=== PATIENT | female | born 1950 | race Caucasian/White ===

== ENCOUNTER 2019-05-25 15:46 | Emergency (ER) | payer BC ==
[2019-05-25] MEDS ORDERED: ASPIRIN 81 MG TAB.CHEW PO ONE (16:00)
--- NOTE | 2019-05-25 16:01 | EKG ---
[address] [address] Test Date: 2019-05-25 Test Time: 15:59:10 Pat Name: JULES BYRNE Department: Room: Gender: F [employer]ice: : 1950 Requested By: KAREN BYRNE Order Number: [id number] Reading MD: Measurements Intervals [place] Rate: 85 P: 64 SD: 196 QRS: 42 QRSD: 88 T: 60 QT: 366 QTc: 441 Interpretive Statements SINUS RHYTHM VENTRICULAR PREMATURE COMPLEX(ES), BIGEMINY ABNORMAL ECG RI6.01 No previous ECG available for comparison
[2019-05-25 16:21] VITALS: BP 174/89
[2019-05-25 16:32] LABS: BASO % 1 % (0-3); EOS # 0.1 x10^3/uL (0.0-0.7); EOS % 2 % (0-3); HEMOGLOBIN 14.9 g/dL (12.0-15.5); LYMPH % 31 % (24-48); MEAN CORPUSCULAR HEMOGLOBIN 30 pg (25-35); MEAN CORPUSCULAR HGB CONC 32 g/dL (31-37); MEAN CORPUSCULAR VOLUME 92 fL (79-100); MONO # 0.6 x10^3/uL (0.0-1.1); MONO % 9 % (0-9); NEUT # 3.8 x10^3uL (1.8-7.7); NEUT % 58 % (31-73); PLATELET COUNT 178 x10^3/uL (140-400); RED BLOOD COUNT 4.99 x10^6/uL (3.50-5.40); RED CELL DISTRIBUTION WIDTH 14.2 % (11.5-14.5); WHITE BLOOD COUNT 6.5 x10^3/uL (4.0-11.0)
--- NOTE | 2019-05-25 16:35 | RAD ---
Study: PORTABLE CHEST 1V Indication: Chest pain. Comparison: None. Findings: The cardiomediastinal silhouette is within normal limits for size. Vascular calcifications at the aortic arch. No overt central vascular congestion. No lobar infiltrate, large effusion or pneumothorax. The lungs appear hyperexpanded and a component of underlying emphysema may be present. No acute osseous abnormality is seen. No free air under the diaphragm. Impression: 1. No acute radiographic abnormality of the chest. 2. The lungs appear hyperexpanded which could be secondary to underlying emphysema if there is a smoking history. Electronically signed by: JACKSON HOGUE MD (05/25/2019 4:32 PM) [facility]
--- NOTE | 2019-05-25 16:43 | PHYS DOC ---
Past History Past Medical History: Arthritis, High Cholesterol Past Surgical History: No Surgical History Alcohol Use: None Drug Use: None Adult General Chief Complaint Chief Complaint: CHEST PAIN [facility] HPI 68-year-old female presents with chest pain and palpitations. The patient went to her primary physician recently was diagnosed with PVCs. She had some blood work done and a referral for cardiology. The patient has had the feeling of palpitations for several years, but they usually are infrequent and less noticeable. They've been more noticeable lately. She was noticing them much more today at work and decided she should be evaluated. She also had some central chest tightness. She denies shortness of breath or diaphoresis. She has not had fever or chills. No other significant cardiac history. Review of Systems Review of Systems Constitutional: Denies fever or chills [] Eyes: Denies change in visual acuity, redness, or eye pain [] HENT: Denies nasal congestion or sore throat [] Respiratory: Denies cough or shortness of breath [] Cardiovascular: No additional information not addressed in HPI [] GI: Denies abdominal pain, nausea, vomiting, bloody stools or diarrhea [] : Denies dysuria or hematuria [] Musculoskeletal: Denies back pain or joint pain [] Integument: Denies rash or skin lesions [] Neurologic: Denies headache, focal weakness or sensory changes [] Endocrine: Denies polyuria or polydipsia [] All other systems were reviewed and found to be within normal limits, except as documented in this note. Current Medications Current Medications Current Medications Medications (Trade) Dose Ordered Sig/[facility] Start Time Stop Time Status Last Admin Dose Admin Aspirin (Children'S Aspirin) 324 mg 1X ONCE 05/25/19 16:00 05/25/19 16:16 DC Allergies Allergies Allergies Coded Allergies Type Severity Reaction Last Updated Verified piperacillin Allergy Unknown 05/25/19 Yes tazobactam Allergy Unknown 05/25/19 Yes Physical Exam Physical Exam Constitutional: Well developed, well nourished, no acute distress, non-toxic appearance. [] HENT: Normocephalic, atraumatic, bilateral external ears normal, oropharynx moist, no oral exudates, nose normal. [] Eyes: PERRLA, EOMI, conjunctiva normal, no discharge. [] Neck: Normal range of motion, no tenderness, supple, no stridor. [] Cardiovascular:Heart rate regular rhythm, no murmur [] Lungs & Thorax: Bilateral breath sounds clear to auscultation [] Abdomen: Bowel sounds normal, soft, no tenderness, no masses, no pulsatile masses. [] Skin: Warm, dry, no erythema, no rash. [] Back: No tenderness, no CVA tenderness. [] Extremities: No tenderness, no cyanosis, no clubbing, ROM intact, no edema. [] Neurologic: Alert and oriented X 3, normal motor function, normal sensory function, no focal deficits noted. [] Psychologic: Affect normal, judgement normal, mood normal. [] Current Patient Data Vital Signs Vital Signs Date Time Temp Pulse Resp B/P (MAP) Pulse Ox O2 Delivery O2 Flow Rate FiO2 05/25/19 16:21 53 18 99 Room Air Lab Results Laboratory Tests Test 05/25/19 16:16 White Blood Count 6.5 x10^3/uL (4.0-11.0) Red Blood Count 4.99 x10^6/uL (3.50-5.40) Hemoglobin 14.9 g/dL (12.0-15.5) Hematocrit 46.0 % (36.0-47.0) Mean Corpuscular Volume 92 fL (79-100) Mean Corpuscular Hemoglobin 30 pg (25-35) Mean Corpuscular Hemoglobin Concent 32 g/dL (31-37) Red Cell Distribution Width 14.2 % (11.5-14.5) Platelet Count 178 x10^3/uL (140-400) Neutrophils (%) (Auto) 58 % (31-73) Lymphocytes (%) (Auto) 31 % (24-48) Monocytes (%) (Auto) 9 % (0-9) Eosinophils (%) (Auto) 2 % (0-3) Basophils (%) (Auto) 1 % (0-3) Neutrophils # (Auto) 3.8 x10^3uL (1.8-7.7) Lymphocytes # (Auto) 2.0 x10^3/uL (1.0-4.8) Monocytes # (Auto) 0.6 x10^3/uL (0.0-1.1) Eosinophils # (Auto) 0.1 x10^3/uL (0.0-0.7) Basophils # (Auto) 0.0 x10^3/uL (0.0-0.2) EKG EKG Sinus rhythm, rate 85, PVCs, bigeminy, no obvious ST elevation or depression.[] Radiology/Procedures Radiology/Procedures [] Impressions: Study: PORTABLE CHEST 1V Indication: Chest pain. Comparison: None. Findings: The cardiomediastinal silhouette is within normal limits for size. Vascular calcifications at the aortic arch. No overt central vascular congestion. No lobar infiltrate, large effusion or pneumothorax. The lungs appear hyperexpanded and a component of underlying emphysema may be present. No acute osseous abnormality is seen. No free air under the diaphragm. Impression: 1. No acute radiographic abnormality of the chest. 2. The lungs appear hyperexpanded which could be secondary to underlying emphysema if there is a smoking history. Electronically signed by: JACKSON HOGUE MD (05/25/2019 4:32 PM) [facility] DICTATED AND SIGNED BY: JACKSON HOGUE MD DATE: 05/25/19 568 CC: KAREN BYRNE DO ~ Course & Med Decision Making Course & Med Decision Making Pertinent Labs and Imaging studies reviewed. (See chart for details) The patient's EKG is significant for bigeminy and frequent PVCs. Her labs are unremarkable. Her troponin is negative. Her chest x-ray showed acute findings. I have recommended to the patient that she should follow-up with cardiology as recommended by her primary physician. Her HEART score is 3, mostly for age. I have shared all of these results with the patient. She is greatly reassured. She is stable for discharge at this time. [] Dragon Disclaimer Dragon Disclaimer This electronic medical record was generated, in whole or in part, using a voice recognition dictation system. The HEART Score for CP Pts HEART Score for Chest Pain: HEART Score for Chest Pain Response (Comments) Value History Slighlty/Non-Suspicious 0 ECG Nonspecific Repolarizatio 1 Age > 65 2 Risk Factors No Risk Factors 0 Troponin < Normal Limit 0 Total 3 Risk Factors: Risk Factors: DM, Current or recent (<one month) smoker, HTN, HLP, family history of CAD, obesity. Risk Scores: Score 0 - 3: 2.5% MACE over next 6 weeks - Discharge Home Score 4 - 6: 20.3% MACE over next 6 weeks - Admit for Clinical Observation Score 7 - 10: 72.7% MACE over next 6 weeks - Early Invasive Strategies Departure Departure: Impression: Primary Impression: Chest pain Additional Impression: Palpitations Disposition: HOME, SELF-CARE Condition: STABLE Patient Instructions: Chest Pain (Nonspecific), [id number], Palpitations, [id number] Problem Qualifiers Primary Impression: Chest pain Chest pain type: other chest pain Qualified Codes: R07.89 - Other chest pain KAREN BYRNE DO May 25, 2019 16:43
[2019-05-25 17:06] LABS: ALBUMIN 4.2 g/dL (3.4-5.0); ALBUMIN/GLOBULIN RATIO 1.1 (1.0-1.7); CALCIUM 10.2 mg/dL (8.5-10.1); CREATININE 0.9 mg/dL (0.6-1.0); GFR 62.6; POTASSIUM 4.3 mmol/L (3.5-5.1); TOTAL BILIRUBIN 0.2 mg/dL (0.2-1.0)
== END 2019-05-25 18:16 | disposition home or self-care (01) ==
LOC: ER 15:46
DX: R07.89 Other chest pain (principal); M19.90 Unspecified osteoarthritis, unspecified site; E78.00 Pure hypercholesterolemia, unspecified; Z88.8 Allergy status to other drugs, medicaments and biological substances
CPT/HCPCS: 36415; 71045; 80053; 83880; 84484; 85025; 93005; 99285